=== PATIENT | female | born 1965 | race Two or more races ===

== ENCOUNTER 2016-09-25 21:02 | Inpatient (IN) | payer MEDICAID ==
[~2016-09-25] VITALS: Ht 160 cm; Wt 90.3 kg
[~2016-09-25 21:02] MED LIST: ALPR0.5T PO; ERYT-124 PO; HYDR-2595 PO; LIS10T PO; PAROXETINE PO; TOPI25TA84 PO
[2016-09-25 23:42] LABS: Basophils # (auto) 0.1 uL; Basophils % (auto) 0.7 % (0.0-2.0); Eosinophils # (auto) 0 uL; Hemoglobin 14.4 g/dL (12.2-16.2); Lymphocytes # (auto) 1.4 uL; Lymphocytes % (auto) 8.2 % (10.0-50.0); Mean Corpuscular Hemoglobin 28.8 pg (28.0-32.0); Mean Corpuscular Hgb Conc. 32.7 g/dL (32.0-36.0); Mean Platelet Volume 7.7 fL (7.4-10.4); Monocytes # (auto) 0.9 uL; Monocytes % (auto) 5.5 % (0.0-12.0); Neutrophils # (auto) 14.2 uL; Neutrophils % (auto) 85.6 % (37.0-80.0); Platelet Count (auto) 294 10^3/uL (140-450); Red Cell Distribution Width 13.3 % (11.6-16.0); SUSPECT VIEW TRANSMISSION; White Blood Cell 16.6 10^3/uL (4.4-10.8)
[2016-09-26] VITALS (17 sets, daily range): BP systolic 124–155; BP diastolic 76–104
[2016-09-26] MEDS ORDERED: ASPirin 81 mg TAB PO ONE
[2016-09-26 00:07] LABS: Albumin 3.7 g/dL (3.4-5.0); Anion Gap 12 (5-15); Aspartate Aminotransferase 18 U/L (15-37); BUN/Creatinine Ratio 10.2; Blood Urea Nitrogen 11 mg/dL (7-18); Calcium 8.6 mg/dL (8.5-10.1); Carbon Dioxide 23 mmol/L (21-32); Chloride 105 mmol/L (98-107); GFR African American 69 mL/min; GFR Non-African American 57 mL/min; Glucose 116 mg/dL (74-106); Potassium 3.6 mmol/L (3.5-5.1); Sodium 140 mmol/L (136-145)
[2016-09-26 00:12] LABS: Alkaline Phosphatase 123 U/L (45-117); Bilirubin, Total 0.7 mg/dL (0.2-1.0); Total Protein 7.4 g/dL (6.4-8.2)
[2016-09-26 00:17] LABS: B-Type Natriuretic Peptide 25.34 pg/mL (0-100)
[2016-09-26 00:29] LABS: Temperature: 23.4 C (20.0-25.0)
[2016-09-26] MEDS ORDERED: MORPHINE SULFATE 4 MG/ML SYRG IV ONE ×2 (01:00→03:30)
[2016-09-26] MEDS ORDERED: ONDANSETRON HCL 4 MG/2 ML VIAL IV ONE ×2 (04:45)
[2016-09-26] MEDS ORDERED: HYDROmorphone HCL 2 MG/ML VL IV ONE (04:45)
[2016-09-26] MEDS ORDERED: LEVOFLOXACIN 500MG 100 ML IV ONE (05:45)
[2016-09-26] MEDS ORDERED: VANCOMYCIN PER PHARMACY 0 MG IV SCH (07:15)
[2016-09-26] MEDS ORDERED: NITROGLYCERIN 0.4 MG SL TAB SL PRN ×2 (07:15)
[2016-09-26] MEDS ORDERED: LORazepam 0.5 MG TAB PO PRN (07:15)
[2016-09-26] MEDS ORDERED: ACETAMINOPHEN 500 MG TAB PO PRN (07:15)
[2016-09-26] MEDS ORDERED: VANCOMYCIN 1GM/250ML D5W 250 ML IV ONE (07:15)
[2016-09-26] MEDS ORDERED: LACTULOSE 20Gm/30ML SOLN PO PRN (07:15)
[2016-09-26] MEDS: PROCHLORPERAZINE EDISYLATE 5 MG/ML 2ML VIAL IV PRN ×2 (07:28→17:06)
[2016-09-26] MEDS: MORPHINE SULF INJ 2 MG/ML SYRINGE 1ML IV PRN ×3 (07:28→20:19)
[2016-09-26] MEDS: SODIUM CHLORIDE 0.9% 1,000 ML IV SCH ×3 (07:42→23:00)
[2016-09-26] MEDS ORDERED: NITROGLYCERIN 0.2MG/HR TOPICAL PATCH TD ONE (08:00)
[2016-09-26 09:22] LABS: INR 1.11 (0.9-1.15)
[2016-09-26] MEDS ORDERED: TOPIRAMATE 25 MG TAB ONE (09:55)
[2016-09-26] MEDS: ASPirin 81 mg TAB PO SCH (09:56)
[2016-09-26] MEDS: PANTOPRAZOLE 40 MG TAB PO SCH (09:57)
[2016-09-26] MEDS: PARoxetine 20 MG TAB PO SCH (09:57)
[2016-09-26] MEDS: METOPROLOL TARTRATE 25 MG TAB PO SCH ×2 (09:58→16:07)
[2016-09-26] MEDS: ALPRAZolam 0.5 MG TAB PO SCH (10:00)
[2016-09-26] MEDS ORDERED: COLCHICINE 0.6 MG CAP PO SCH (10:00)
[2016-09-26] MEDS: LISINOPRIL 10 MG TAB PO SCH (10:00)
[2016-09-26] MEDS ORDERED: PAROXETINE 10 MG PO SCH (10:00)
[2016-09-26] MEDS: TOPIRAMATE 25 MG TAB PO SCH ×2 (10:01→22:18)
[2016-09-26] MEDS: methylPREDNISolone SOD SUCC 40 MG/ML VL IV SCH ×2 (10:02→22:19)
[2016-09-26] MEDS ORDERED: LIDOCAINE 2%HCL (LOCAL ANESTH.) INJ 20ML MDV ONE ×2 (11:48→13:11)
[2016-09-26] MEDS ORDERED: fentaNYL CITRATE 100 MCG/2 ML VL ONE (12:53)
[2016-09-26] MEDS ORDERED: MIDAZOLAM HCL 1MG/1ML-2 ML VIAL ONE (12:54)
[2016-09-26] MEDS ORDERED: IBUPROFEN 400 MG TAB PO PRN (16:00)
[2016-09-26] MEDS ORDERED: METOPROLOL TARTRATE 25 MG TAB ONE (16:02)
[2016-09-26] MEDS ORDERED: hydrALAZINE HCL 20 MG/ML VL ONE (16:54)
[2016-09-26] MEDS ORDERED: hydrALAZINE HCL 20 MG/ML VL IV ONE (17:00)
[2016-09-26] MEDS: HYDROcodone-ACET 5/325MG TAB PO PRN (19:14)
[2016-09-26] MEDS ORDERED: ONDANSETRON HCL 4 MG/2 ML VIAL ONE (19:28)
[2016-09-26] MEDS: VANCOMYCIN 1GM/250ML D5W 250 ML IV SCH (20:16)
[2016-09-26 21:28] LABS: Body Fluid Polymorphonuclear 96 %
[2016-09-26] MEDS: ATORVASTATIN 20 MG TAB PO SCH (22:00)
[2016-09-26] MEDS: COLCHICINE 0.6 MG CAP PO SCH (22:18)
[2016-09-26] MEDS ORDERED: QUET50TA PO (22:36)
[2016-09-26] MEDS ORDERED: COLCPOW2 PO (22:37)
[2016-09-27] VITALS (52 sets, daily range): BP systolic 91–155; BP diastolic 55–100
[2016-09-27] MEDS: MORPHINE SULF INJ 2 MG/ML SYRINGE 1ML IV PRN ×3 (04:35→20:34)
[2016-09-27] MEDS: ONDANSETRON HCL 4 MG/2 ML VIAL IV PRN ×2 (04:36→07:35)
[2016-09-27] MEDS: LEVOFLOXACIN 500MG 100 ML IV SCH (06:55)
[2016-09-27 07:11] LABS: Basophils # (auto) 0.1 uL; Basophils % (auto) 0.5 % (0.0-2.0); Eosinophils # (auto) 0 uL; Hematocrit 42.8 % (36.0-46.0); Hemoglobin 14.2 g/dL (12.2-16.2); Lymphocytes # (auto) 0.8 uL; Lymphocytes % (auto) 4.3 % (10.0-50.0); Mean Corpuscular Hemoglobin 29.4 pg (28.0-32.0); Mean Corpuscular Hgb Conc. 33.2 g/dL (32.0-36.0); Mean Corpuscular Volume 88.4 fL (80.0-100.0); Mean Platelet Volume 7.6 fL (7.4-10.4); Monocytes # (auto) 0.3 uL; Monocytes % (auto) 1.7 % (0.0-12.0); Neutrophils # (auto) 17.9 uL; Neutrophils % (auto) 93.5 % (37.0-80.0); Platelet Count (auto) 319 10^3/uL (140-450); Red Cell Distribution Width 14.4 % (11.6-16.0); White Blood Cell 19.2 10^3/uL (4.4-10.8)
[2016-09-27 07:53] LABS: Urine Bilirubin Negative (Negative); Urine Blood Negative /uL (Negative); Urine Color Yellow (Yellow); Urine Glucose Normal (Normal); Urine Nitrite Negative (Negative); Urine RBC <1 /hpf (0 - 4); Urine Squamous Epithelial Cell FEW /hpf (<5); Urine Urobilinogen Normal (Negative); Urine pH 7.5 (5.0-8.0)
[2016-09-27 07:57] LABS: Albumin 3.1 g/dL (3.4-5.0); BUN/Creatinine Ratio 15.2; Bilirubin, Total 0.6 mg/dL (0.2-1.0); Calcium 8.8 mg/dL (8.5-10.1); Potassium 4.7 mmol/L (3.5-5.1); Total Protein 7.5 g/dL (6.4-8.2)
[2016-09-27 08:00] LABS: Urine Ketone 2+ (Negative)
[2016-09-27] MEDS ORDERED: METOPROLOL SUCCINATE XL 50 MG TAB PO SCH (10:00)
[2016-09-27] MEDS: NITROGLYCERIN 0.2MG/HR TOPICAL PATCH TD SCH (10:00)
[2016-09-27] MEDS: VANCOMYCIN 1GM/250ML D5W 250 ML IV SCH ×2 (10:35→20:40)
[2016-09-27] MEDS: methylPREDNISolone SOD SUCC 40 MG/ML VL IV SCH ×2 (10:35→21:45)
[2016-09-27] MEDS: ASPirin 81 mg TAB PO SCH (10:36)
[2016-09-27] MEDS: COLCHICINE 0.6 MG CAP PO SCH ×2 (10:36→21:46)
[2016-09-27] MEDS: PANTOPRAZOLE 40 MG TAB PO SCH (10:37)
[2016-09-27] MEDS: PARoxetine 20 MG TAB PO SCH (10:37)
[2016-09-27] MEDS: TOPIRAMATE 25 MG TAB PO SCH ×2 (10:38→21:46)
[2016-09-27] MEDS: ALPRAZolam 0.5 MG TAB PO SCH (10:39)
[2016-09-27] MEDS: LISINOPRIL 10 MG TAB PO SCH (10:39)
[2016-09-27] MEDS: SODIUM CHLORIDE 0.9% 1,000 ML IV SCH (13:02)
[2016-09-27] MEDS: ATORVASTATIN 20 MG TAB PO SCH (21:46)
[2016-09-27] MEDS: TEMAZEPAM 15 MG CAP PO PRN (21:57)
[2016-09-28] VITALS (48 sets, daily range): BP systolic 95–140; BP diastolic 47–83
[2016-09-28] MEDS: MORPHINE SULF INJ 2 MG/ML SYRINGE 1ML IV PRN ×3 (05:17→21:49)
[2016-09-28] MEDS: LEVOFLOXACIN 500MG 100 ML IV SCH (05:35)
[2016-09-28] MEDS: HYDROcodone-ACET 5/325MG TAB PO PRN ×2 (07:46→20:01)
[2016-09-28] MEDS: VANCOMYCIN 1GM/250ML D5W 250 ML IV SCH ×2 (08:46→19:58)
[2016-09-28] MEDS: NITROGLYCERIN 0.2MG/HR TOPICAL PATCH TD SCH (10:00)
[2016-09-28] MEDS: methylPREDNISolone SOD SUCC 40 MG/ML VL IV SCH ×2 (10:11→21:47)
[2016-09-28] MEDS: COLCHICINE 0.6 MG CAP PO SCH ×2 (10:11→21:47)
[2016-09-28] MEDS: ALPRAZolam 0.5 MG TAB PO SCH (10:11)
[2016-09-28] MEDS: PANTOPRAZOLE 40 MG TAB PO SCH (10:11)
[2016-09-28] MEDS: PARoxetine 20 MG TAB PO SCH (10:11)
[2016-09-28] MEDS: TOPIRAMATE 25 MG TAB PO SCH ×2 (10:11→21:47)
[2016-09-28] MEDS: LISINOPRIL 10 MG TAB PO SCH (10:13)
[2016-09-28] MEDS: ASPirin 81 mg TAB PO SCH (10:13)
[2016-09-28] MEDS ORDERED: METO25TA62 PO (11:29)
[2016-09-28] MEDS ORDERED: MORPHINE SULF INJ 2 MG/ML SYRINGE 1ML ONE (21:34)
[2016-09-28] MEDS ORDERED: MORPHINE SULF INJ 2 MG/ML SYRINGE 1ML IV PRN (21:45)
[2016-09-28] MEDS: ATORVASTATIN 20 MG TAB PO SCH (21:46)
[2016-09-28] MEDS: TEMAZEPAM 15 MG CAP PO PRN (23:59)
[2016-09-28] MEDS: MORPHINE SULF 15mg ER tab PO SCH (23:59)
[2016-09-29] VITALS (38 sets, daily range): BP systolic 88–128; BP diastolic 43–90
[2016-09-29 05:40] LABS: Basophils # (auto) 0 uL; Eosinophils # (auto) 0 uL; Hematocrit 41.2 % (36.0-46.0); Hemoglobin 13.7 g/dL (12.2-16.2); Lymphocytes # (auto) 0.9 uL; Lymphocytes % (auto) 8.5 % (10.0-50.0); Mean Corpuscular Hemoglobin 29.3 pg (28.0-32.0); Mean Corpuscular Hgb Conc. 33.3 g/dL (32.0-36.0); Mean Corpuscular Volume 88.1 fL (80.0-100.0); Mean Platelet Volume 8.8 fL (7.4-10.4); Monocytes # (auto) 0.2 uL; Monocytes % (auto) 1.6 % (0.0-12.0); Neutrophils # (auto) 9.1 uL; Neutrophils % (auto) 89.9 % (37.0-80.0); Platelet Count (auto) 402 10^3/uL (140-450); Red Cell Distribution Width 13.9 % (11.6-16.0); White Blood Cell 10.1 10^3/uL (4.4-10.8)
[2016-09-29] MEDS: LEVOFLOXACIN 500MG 100 ML IV SCH (05:57)
[2016-09-29] MEDS: MORPHINE SULF INJ 2 MG/ML SYRINGE 1ML IV PRN ×2 (05:58→15:28)
[2016-09-29 06:05] LABS: BUN/Creatinine Ratio 21.8; Calcium 8.4 mg/dL (8.5-10.1); Magnesium 2.3 mg/dL (1.6-2.6); Potassium 3.9 mmol/L (3.5-5.1)
[2016-09-29] MEDS: VANCOMYCIN 1GM/250ML D5W 250 ML IV SCH (07:46)
[2016-09-29] MEDS: COLCHICINE 0.6 MG CAP PO SCH (09:58)
[2016-09-29] MEDS: methylPREDNISolone SOD SUCC 40 MG/ML VL IV SCH (09:58)
[2016-09-29] MEDS: ASPirin 81 mg TAB PO SCH (09:58)
[2016-09-29] MEDS: PARoxetine 20 MG TAB PO SCH (09:59)
[2016-09-29] MEDS: MORPHINE SULF 15mg ER tab PO SCH (09:59)
[2016-09-29] MEDS: PANTOPRAZOLE 40 MG TAB PO SCH (09:59)
[2016-09-29] MEDS: TOPIRAMATE 25 MG TAB PO SCH (09:59)
[2016-09-29] MEDS ORDERED: METOPROLOL SUCCINATE XL 50 MG TAB PO SCH (10:00)
[2016-09-29] MEDS: ALPRAZolam 0.5 MG TAB PO SCH (10:00)
[2016-09-29] MEDS: LISINOPRIL 10 MG TAB PO SCH (10:02)
[2016-09-29] MEDS: NITROGLYCERIN 0.2MG/HR TOPICAL PATCH TD SCH (10:03)
[2016-09-29] MEDS: ONDANSETRON HCL 4 MG/2 ML VIAL IV PRN (15:28)
== END 2016-09-29 17:45 | disposition home or self-care (01) | DRG 207 ==
LOC: ER 21:02 → TELE 21:03 → ICU WEST 09-26 19:40
PROVIDERS: ADMIT Internal Medicine; ATTEND Internal Medicine
PROC: 0W9D30Z Drainage of Pericardial Cavity with Drainage Device, Percutaneous Approach (ICD-10-PCS; principal; 2016-09-26)
DX: I31.3 Pericardial effusion (noninflammatory) (principal); I31.4 Cardiac tamponade; E11.22 Type 2 diabetes mellitus with diabetic chronic kidney disease; I50.9 Heart failure, unspecified; I13.0 Hypertensive heart and chronic kidney disease with heart failure and stage 1 through stage 4 chronic kidney disease, or unspecified chronic kidney disease; M06.9 Rheumatoid arthritis, unspecified; M94.0 Chondrocostal junction syndrome [Tietze]; N18.9 Chronic kidney disease, unspecified; E78.5 Hyperlipidemia, unspecified; E78.00 Pure hypercholesterolemia, unspecified; D72.823 Leukemoid reaction; D16.9 Benign neoplasm of bone and articular cartilage, unspecified; R76.11 Nonspecific reaction to tuberculin skin test without active tuberculosis; M79.7 Fibromyalgia; G40.909 Epilepsy, unspecified, not intractable, without status epilepticus; G43.909 Migraine, unspecified, not intractable, without status migrainosus; Z79.52 Long term (current) use of systemic steroids; Z82.49 Family history of ischemic heart disease and other diseases of the circulatory system; Z87.442 Personal history of urinary calculi; Z80.9 Family history of malignant neoplasm, unspecified; Z88.0 Allergy status to penicillin; Z79.899 Other long term (current) drug therapy; Z90.49 Acquired absence of other specified parts of digestive tract
CPT/HCPCS: 36415; 71010; 71020; 76930; 80048; 80053; 80061; 80202; 81001; 82550; 83735; 83880; 84484; 85025; 85379; 85610; 85652; 86141; 86850; 86900; 86901; 87081; 87086; 87205; 89051; 93306; 96365; 96367; 96375; 96376; G0434; J1956; J2250; J2405

== ENCOUNTER 2017-04-30 23:30 | Inpatient (IN) | payer MEDICAID ==
[~2017-04-30] VITALS: Ht 154.9 cm; Wt 92.3 kg
[~2017-04-30 23:30] MED LIST changes: -ALPR0.5T PO; +COLCPOW2 PO; -ERYT-124 PO; -HYDR-2595 PO; +METO25TA62 PO; +QUET50TA PO
[2017-05-01 00:18] LABS: Basophils # (auto) 0 uL; Basophils % (auto) 0.3 % (0.0-2.0); Eosinophils # (auto) 0 uL; Eosinophils % (auto) 0.2 % (0.0-7.0); Hemoglobin 12.4 g/dL (12.2-16.2); Lymphocytes # (auto) 1.8 uL; Lymphocytes % (auto) 23.9 % (10.0-50.0); Mean Corpuscular Hemoglobin 28.5 pg (28.0-32.0); Mean Corpuscular Hgb Conc. 32.7 g/dL (32.0-36.0); Mean Corpuscular Volume 87.1 fL (80.0-100.0); Monocytes # (auto) 0.4 uL; Monocytes % (auto) 5.8 % (0.0-12.0); Neutrophils # (auto) 5.4 uL; Neutrophils % (auto) 69.8 % (37.0-80.0); Platelet Count (auto) 242 10^3/uL (140-450); Red Blood Cells 4.37 10^6/uL (4.0-5.20); Red Cell Distribution Width 15.2 % (11.8-14.3); White Blood Cell 7.7 10^3/uL (4.4-10.8)
[2017-05-01 00:28] LABS: Alanine Aminotransferase 19 U/L (13-56); Albumin 3.2 g/dL (3.4-5.0); Anion Gap 6 (5-15); Aspartate Aminotransferase 12 U/L (15-37); BUN/Creatinine Ratio 12.1; Blood Urea Nitrogen 7 mg/dL (7-18); Calcium 8.4 mg/dL (8.5-10.1); Carbon Dioxide 27 mmol/L (21-32); Chloride 108 mmol/L (98-107); GFR African American 140 mL/min; GFR Non-African American 116 mL/min; Glucose 109 mg/dL (74-106); Potassium 3.8 mmol/L (3.5-5.1); Sodium 141 mmol/L (136-145)
[2017-05-01 00:33] LABS: Alkaline Phosphatase 139 U/L (45-117); Bilirubin, Total 0.2 mg/dL (0.2-1.0)
[2017-05-01 01:45] LABS: INR 0.9 (0.9-1.15); Partial Thromboplastin Time 26.6 sec (22.64-33.71); Prothrombin Time 9.8 sec (9.37-12.3)
[2017-05-01] MEDS ORDERED: HYDROmorphone HCL 2 MG/ML VL IV ONE ×2 (01:45→05:00)
[2017-05-01] MEDS ORDERED: ONDANSETRON HCL 4 MG/2 ML VIAL IV ONE (01:45)
[2017-05-01] MEDS ORDERED: IOHEXOL 350 MG/ML 100ML IJ ONE (02:53)
[2017-05-01] MEDS ORDERED: ONDANSETRON HCL 4 MG/2 ML VIAL IV PRN (06:45)
[2017-05-01] MEDS ORDERED: TEMAZEPAM 15 MG CAP PO PRN (06:45)
[2017-05-01] MEDS ORDERED: NITROGLYCERIN 0.4 MG SL TAB SL PRN (06:45)
[2017-05-01] MEDS ORDERED: FUROSEMIDE 20 MG/2 ML VIAL IV ONE (06:45)
[2017-05-01] MEDS ORDERED: ACETAMINOPHEN 325 MG TAB PO PRN (06:45)
[2017-05-01] MEDS: HYDROcodone-ACET 5/325MG TAB PO PRN ×2 (08:57→13:27)
[2017-05-01] MEDS ORDERED: FUROSEMIDE 20 MG TAB PO SCH (10:00)
[2017-05-01] MEDS ORDERED: METOPROLOL SUCCINATE XL 50 MG TAB PO SCH (10:00)
[2017-05-01] MEDS ORDERED: ASPirin 81 mg TAB PO SCH (10:00)
[2017-05-01] MEDS ORDERED: LISINOPRIL 10 MG TAB PO SCH (10:00)
[2017-05-01] MEDS ORDERED: FAMOTIDINE 20 MG TAB PO SCH (10:00)
[2017-05-01] MEDS ORDERED: ENOXAPARIN SOD 40 MG/0.4 ML SYRINGE SC SCH (10:00)
[2017-05-01] MEDS: methylPREDNISolone SOD SUCC 40 MG/ML VL IV SCH ×3 (10:42→21:56)
[2017-05-01] MEDS: TOPIRAMATE 25 MG TAB PO SCH ×2 (10:43→21:56)
[2017-05-01] MEDS: PARoxetine 20 MG TAB PO SCH (10:44)
[2017-05-01 10:56] VITALS: BP 125/86
[2017-05-01] MEDS: HYDROmorphone HCL 2 MG/ML VL IV PRN ×4 (10:58→21:19)
[2017-05-01] MEDS ORDERED: TRAZ50TA2 PO (11:09)
[2017-05-01 13:00] VITALS: BP 117/70
[2017-05-01 17:38] VITALS: BP 109/83
[2017-05-01] MEDS ORDERED: PANTOPRAZOLE 40 MG TAB PO ONE (18:15)
[2017-05-01 20:00] VITALS: BP 117/66
[2017-05-01] MEDS: COLCHICINE 0.6 MG TAB PO SCH (21:56)
[2017-05-01 22:00] VITALS: BP 117/66
[2017-05-01] MEDS: IBUPROFEN 800 MG TAB PO SCH (22:00)
[2017-05-02] MEDS: HYDROmorphone HCL 2 MG/ML VL IV PRN ×5 (01:05→18:09)
[2017-05-02] MEDS: methylPREDNISolone SOD SUCC 40 MG/ML VL IV SCH ×4 (04:00→21:36)
[2017-05-02 05:00] VITALS: BP 128/79
[2017-05-02] MEDS: IBUPROFEN 800 MG TAB PO SCH ×3 (06:01→21:36)
[2017-05-02 06:32] LABS: Basophils # (auto) 0 uL; Basophils % (auto) 0.2 % (0.0-2.0); Eosinophils # (auto) 0 uL; Hematocrit 40.3 % (36.0-46.0); Hemoglobin 13.4 g/dL (12.2-16.2); Lymphocytes # (auto) 0.9 uL; Mean Corpuscular Hemoglobin 28.8 pg (28.0-32.0); Mean Corpuscular Hgb Conc. 33.2 g/dL (32.0-36.0); Mean Corpuscular Volume 86.7 fL (80.0-100.0); Monocytes # (auto) 0.1 uL; Monocytes % (auto) 1.3 % (0.0-12.0); Neutrophils # (auto) 7.8 uL; Neutrophils % (auto) 88.5 % (37.0-80.0); Nucleated Red Blood Cells % 0.1 %; Platelet Count (auto) 284 10^3/uL (140-450); Red Blood Cells 4.65 10^6/uL (4.0-5.20); Red Cell Distribution Width 14.8 % (11.8-14.3); White Blood Cell 8.8 10^3/uL (4.4-10.8)
[2017-05-02] MEDS ORDERED: AZAT50TA18 PO (06:41)
[2017-05-02] MEDS ORDERED: ALPR0.5T7 PO (06:41)
[2017-05-02] MEDS ORDERED: TOPI100T68 PO (06:41)
[2017-05-02] MEDS ORDERED: PREG100C PO (06:41)
[2017-05-02] MEDS ORDERED: PANT40TA2 PO (06:41)
[2017-05-02] MEDS ORDERED: SUMA100T15 PO (06:41)
[2017-05-02] MEDS ORDERED: MORP15TA PO (06:41)
[2017-05-02] MEDS ORDERED: DULO60CA PO (06:41)
[2017-05-02] MEDS ORDERED: MELO1TAB73 PO (06:41)
[2017-05-02] MEDS ORDERED: FURO20TA3 PO (06:41)
[2017-05-02 06:50] LABS: Potassium 3.9 mmol/L (3.5-5.1)
[2017-05-02 06:55] LABS: Albumin 3.2 g/dL (3.4-5.0); BUN/Creatinine Ratio 13.6; Calcium 9.2 mg/dL (8.5-10.1)
[2017-05-02 06:57] LABS: Bilirubin, Total 0.3 mg/dL (0.2-1.0); Total Protein 7.3 g/dL (6.4-8.2)
[2017-05-02 09:05] VITALS: BP 136/73
[2017-05-02] MEDS: COLCHICINE 0.6 MG TAB PO SCH ×2 (09:52→21:36)
[2017-05-02] MEDS: PARoxetine 20 MG TAB PO SCH (09:54)
[2017-05-02] MEDS: TOPIRAMATE 25 MG TAB PO SCH ×2 (09:54→21:35)
[2017-05-02] MEDS: PANTOPRAZOLE 40 MG TAB PO SCH (09:54)
[2017-05-02 13:22] VITALS: BP 127/76
[2017-05-02] MEDS: HYDROcodone-ACET 5/325MG TAB PO PRN (16:28)
[2017-05-02 16:53] VITALS: BP 123/77
[2017-05-02] MEDS ORDERED: ZOLPIDEM TARTRATE 5 MG TAB PO PRN (17:00)
[2017-05-02] MEDS: ALPRAZolam 0.25 MG TAB PO PRN (17:13)
[2017-05-02 20:00] VITALS: BP 124/75
[2017-05-02 21:45] VITALS: BP 124/75
[2017-05-03] MEDS: HYDROmorphone HCL 2 MG/ML VL IV PRN ×3 (00:39→09:57)
[2017-05-03] MEDS: ALPRAZolam 0.25 MG TAB PO PRN ×2 (02:31→11:21)
[2017-05-03] MEDS: methylPREDNISolone SOD SUCC 40 MG/ML VL IV SCH ×2 (04:24→09:57)
[2017-05-03 05:10] VITALS: BP 139/87
[2017-05-03] MEDS: IBUPROFEN 800 MG TAB PO SCH ×2 (05:42→14:00)
[2017-05-03 07:48] VITALS: BP 127/79
[2017-05-03] MEDS: TOPIRAMATE 25 MG TAB PO SCH (09:57)
[2017-05-03] MEDS: COLCHICINE 0.6 MG TAB PO SCH (09:57)
[2017-05-03] MEDS: PARoxetine 20 MG TAB PO SCH (09:58)
[2017-05-03] MEDS: PANTOPRAZOLE 40 MG TAB PO SCH (09:58)
[2017-05-03 12:19] VITALS: BP 142/83
[2017-05-03 13:49] VITALS: BP 142/83
[2017-05-04 10:41] LABS: Hepatitis B Surface Antibody Negative
[2017-05-04 10:51] LABS: Hepatitis B Surface Antigen Negative (Negative)
[2017-05-04 11:17] LABS: Hepatitis B Core Total AB Negative; Hepatitis C Antibody Negative (Negative)
== END 2017-05-03 15:00 | disposition home or self-care (01) | DRG 346 ==
LOC: EDBD 23:30 → ER 23:40 → TELE 23:41 → TELE-E-ADS 05-01 09:34 → TELE-CENTR 05-01 12:41
PROVIDERS: ADMIT Nurse Practitioner; ATTEND Internal Medicine
DX: M06.9 Rheumatoid arthritis, unspecified (principal); J90 Pleural effusion, not elsewhere classified; I31.3 Pericardial effusion (noninflammatory); I11.0 Hypertensive heart disease with heart failure; I50.9 Heart failure, unspecified; I31.9 Disease of pericardium, unspecified; J44.9 Chronic obstructive pulmonary disease, unspecified; R79.1 Abnormal coagulation profile; M19.90 Unspecified osteoarthritis, unspecified site; Z90.49 Acquired absence of other specified parts of digestive tract; Z88.0 Allergy status to penicillin; Z79.899 Other long term (current) drug therapy; Z87.442 Personal history of urinary calculi; Z82.49 Family history of ischemic heart disease and other diseases of the circulatory system; Z82.3 Family history of stroke
CPT/HCPCS: 36415; 71020; 71275; 80053; 83516; 83880; 84484; 85025; 85379; 85610; 85613; 85652; 85670; 85705; 85730; 85732; 86141; 86147; 86160; 86200; 86225; 86235; 86431; 86704; 86706; 86803; 87340; 93005; 93306; 94761; 96374; 96375; 96376; J2405